=== PATIENT | female | born 1985 ===

== ENCOUNTER 2018-05-24 04:56 | Observation (INO) | payer SELFPAY ==
[2018-05-24] MEDS ORDERED: Sodium Chloride 0.9% 1,000 ML IV ONE (05:22)
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
[2018-05-24] MEDS ORDERED: Sodium Chloride 0.9% 1,000 ML ONE (05:54)
[2018-05-24 05:55] LABS: BASO % 0.4 % (0.0-2.0); EOS # 0.1 K/uL (0.0-0.7); EOS % 1.9 % (0.0-4.0); HCG,QUALITATIVE URINE NEGATIVE (NEGATIVE); LYMPH # 1.7 K/uL (1.0-4.3); LYMPH % 23.1 % (20.0-40.0); MEAN CELL VOLUME 90.2 fL (81.0-99.0); MEAN CORPUSCULAR HEMOGLOBIN 31.7 pg (27.0-31.0); MEAN CORPUSCULAR HGB CONC 35.2 g/dL (33.0-37.0); MEAN PLATELET VOLUME 8.9 fL (7.2-11.7); MONO # 0.2 K/uL (0.0-0.8); MONO % 3.2 % (0.0-10.0); NEUT # 5.3 K/uL (1.8-7.0); NEUT % 71.4 % (50.0-75.0); NRBC % 0.1 % (0.0-2.0); RBC 4.09 Mil/uL (3.80-5.20); RED CELL DISTRIBUTION WIDTH 12.4 % (11.5-14.5); WHITE BLOOD COUNT 7.4 K/uL (4.8-10.8)
[2018-05-24 05:57] LABS: SQUAMOUS EPITHIAL < 1 /hpf (0-5); URINE BILIRUBIN NEGATIVE (NEGATIVE); URINE BLOOD NEGATIVE (NEGATIVE); URINE CLARITY Clear (Clear); URINE COLOR Colorless (YELLOW); URINE GLUCOSE (UA) NORMAL (Normal); URINE LEUKOCYTE ESTERASE NEG Leu/uL (Negative); URINE PROTEIN NEGATIVE (NEGATIVE); URINE UROBILINOGEN NORMAL mg/dL (0.2-1.0)
[2018-05-24 06:03] LABS: PROTHROMBIN TIME 10.6 SECONDS (9.7-12.2)
[2018-05-24 06:08] LABS: ALBUMIN 4.7 g/dL (3.5-5.0); ALT/SGPT 22 U/L (9-52); AST/SGOT 21 U/L (14-36); BLOOD UREA NITROGEN 11 mg/dL (7-17); CALCIUM 9.6 mg/dl (8.6-10.4); GFR NON-AFRICAN AMERICAN > 60
[2018-05-24 06:11] LABS: BARBITURATES, UR NEGATIVE (NEGATIVE); OPIATES, UR NEGATIVE (NEGATIVE); PHENCYCLIDINE, UR NEGATIVE (NEGATIVE)
[2018-05-24 06:14] LABS: ACETAMINOPHEN < 10.0 ug/mL (10.0-30.0)
[2018-05-24 06:21] LABS: VENOUS BLOOD GAS BASE EXCESS -3.8 mmol/L (0.0-2.0); VENOUS BLOOD GAS PCO2 39 mmHg (40-60); VENOUS BLOOD GAS PO2 51 mm/Hg (30-55); VENOUS BLOOD PH 7.35 (7.32-7.43)
[2018-05-24 06:48] LABS: BENZODIAZEPINES, UR NEGATIVE (NEGATIVE)
[2018-05-24 07:20] VITALS: O2SAT 100
--- NOTE | 2018-05-24 08:19 | CP.PCM.HP ---
History of Present Illness - History of Present Illness History of Present Illness: Patient is a 32 year old female w/ no PMHx who presents to the ED s/p suicide attempt. Patient and report they got in an argument, and in an effort for attention, patient consumed melatonin and aspirin, of unknown quantity. P atient presented to ED within an hour of ingestion. Pt denies headache, tinnitus, SOB, tachypnea, chest pain, nausea, vomiting, prior suicide attempt. PMD: None PMHx: denies PSHx: denies Meds: denies Allergies: denies SocHx: social alcohol Present on Admission - Present on Admission Any Indicators Present on Admission: No Review of Systems - EENT Eyes: absent: Blurred Vision - Cardiovascular Cardiovascular: absent: Chest Pain, Palpitations, Rapid Heart Rate - Respiratory Respiratory: absent: Dyspnea - Gastrointestinal Gastrointestinal: absent: Abdominal Pain, Nausea, Vomiting - Neurological Neurological: absent: Abnormal Hearing, Dizziness - Psychiatric Psychiatric: absent: Suicidal Ideation Past Patient History - Infectious Disease Hx of Infectious Diseases: None - Past Social History Smoking Status: Never Smoked - CARDIAC Hx Cardiac Disorders: No Hx Hypertension: No - PULMONARY Hx Tuberculosis: No - NEUROLOGICAL HX Cerebrovascular Accident: No Hx Seizures: No - HEMATOLOGICAL/ONCOLOGICAL Hx Cancer: No Hx Human Immunodeficiency Virus (HIV): No - GENITOURINARY/GYNECOLOGICAL Hx Sexually Transmitted Disorders: No - PSYCHIATRIC Hx Substance Use: No - SURGICAL HISTORY Hx Surgeries: No - ANESTHESIA Hx Anesthesia: No Meds Allergies/Adverse Reactions: Allergies Allergy/AdvReac Type Severity Reaction Status Date / Time No Known Allergies Allergy Verified 09/03/16 18:00 Physical Exam - Constitutional Appears: No Acute Distress - Head Exam Head Exam: ATRAUMATIC, NORMAL INSPECTION, NORMOCEPHALIC - Eye Exam Eye Exam: Conjunctival injection, EOMI, Normal appearance - ENT Exam ENT Exam: Mucous Membranes Moist, Normal Exam - Neck Exam Neck exam: Positive for: Normal Inspection - Respiratory Exam Respiratory Exam: Clear to Auscultation Bilateral, NORMAL BREATHING PATTERN - Cardiovascular Exam Cardiovascular Exam: Tachycardia, REGULAR RHYTHM - GI/Abdominal Exam GI & Abdominal Exam: Normal Bowel Sounds, Soft. absent: Tenderness - Extremities Exam Extremities exam: Positive for: normal inspection. Negative for: calf tenderness, pedal edema - Neurological Exam Neurological exam: Alert, CN II-XII Intact, Oriented x3 - Psychiatric Exam Psychiatric exam: Normal Affect, Normal Mood - Skin Skin Exam: Dry, Intact, Normal Color, Warm Results - Vital Signs Recent Vital Signs: Last Vital Signs Temp 98.2 F 05/24/18 07:18 Pulse 102 H 05/24/18 07:18 Resp 20 05/24/18 07:18 BP 118/70 05/24/18 07:18 Pulse Ox 100 05/24/18 07:18 - Labs Result Diagrams: 05/24/18 05:52 05/24/18 13:45 Labs: Laboratory Results - last 24 hr 05/24/18 05/24/18 05/24/18 05:43 05:52 05:52 WBC 7.4 RBC 4.09 Hgb 13.0 Hct 36.8 MCV 90.2 MCH 31.7 H MCHC 35.2 RDW 12.4 Plt Count 268 MPV 8.9 Neut % (Auto) 71.4 Lymph % (Auto) 23.1 Bland % (Auto) 3.2 Eos % (Auto) 1.9 Baso % (Auto) 0.4 Neut # (Auto) 5.3 Lymph # (Auto) 1.7 Bland # (Auto) 0.2 Eos # (Auto) 0.1 Baso # (Auto) 0.0 PT 10.6 INR 1.0 APTT 34 pO2 VBG pH VBG pCO2 VBG HCO3 VBG Total CO2 VBG O2 Sat (Calc) VBG Base Excess VBG Potassium Glucose Lactate Sodium Potassium Chloride Carbon Dioxide Anion Gap BUN Creatinine Est GFR ( Amer) Est GFR (Non-Af Amer) POC Glucose (mg/dL) 91 Random Glucose Calcium Total Bilirubin AST ALT Alkaline Phosphatase Total Protein Albumin Globulin Albumin/Globulin Ratio Venous Blood Potassium Urine Color Urine Clarity Urine pH Ur Specific [place] Urine Protein Urine Glucose (UA) Urine Ketones Urine Blood Urine Nitrate Urine Bilirubin Urine Urobilinogen Ur Leukocyte Esterase Urine RBC (Auto) Ur Squamous Epith Cells Urine HCG, Qual Salicylates Urine Opiates Screen Urine Methadone Screen Acetaminophen Ur Barbiturates Screen Ur Phencyclidine Scrn Ur Amphetamines Screen U Benzodiazepines Scrn U Oth Cocaine Metabols U Cannabinoids Screen Alcohol, Quantitative 05/24/18 05/24/18 05/24/18 05:52 05:52 05:52 WBC RBC Hgb Hct MCV MCH MCHC RDW Plt Count MPV Neut % (Auto) Lymph % (Auto) Bland % (Auto) Eos % (Auto) Baso % (Auto) Neut # (Auto) Lymph # (Auto) Bland # (Auto) Eos # (Auto) Baso # (Auto) PT INR APTT pO2 VBG pH VBG pCO2 VBG HCO3 VBG Total CO2 VBG O2 Sat (Calc) VBG Base Excess VBG Potassium Glucose Lactate Sodium 151 H Potassium 4.3 Chloride 110 H Carbon Dioxide 18 L Anion Gap 26 H BUN 11 Creatinine 0.6 L Est GFR ( Amer) > 60 Est GFR (Non-Af Amer) > 60 POC Glucose (mg/dL) Random Glucose 96 Calcium 9.6 Total Bilirubin 0.2 AST 21 ALT 22 Alkaline Phosphatase 68 Total Protein 9.2 H Albumin 4.7 Globulin 4.5 H Albumin/Globulin Ratio 1.0 Venous Blood Potassium Urine Color Colorless Urine Clarity Clear Urine pH 5.0 Ur Specific [place] 1.002 L Urine Protein Negative Urine Glucose (UA) Normal Urine Ketones Negative Urine Blood Negative Urine Nitrate Negative Urine Bilirubin Negative Urine Urobilinogen Normal Ur Leukocyte Esterase Neg Urine RBC (Auto) < 1 Ur Squamous Epith Cells < 1 Urine HCG, Qual Negative Salicylates Urine Opiates Screen Negative Urine Methadone Screen Negative Acetaminophen Ur Barbiturates Screen Negative Ur Phencyclidine Scrn Negative Ur Amphetamines Screen Negative U Benzodiazepines Scrn Negative U Oth Cocaine Metabols Negative U Cannabinoids Screen Negative Alcohol, Quantitative 237 H 05/24/18 05/24/18 05:52 06:05 WBC RBC Hgb Hct MCV MCH MCHC RDW Plt Count MPV Neut % (Auto) Lymph % (Auto) Bland % (Auto) Eos % (Auto) Baso % (Auto) Neut # (Auto) Lymph # (Auto) Bland # (Auto) Eos # (Auto) Baso # (Auto) PT INR APTT pO2 51 VBG pH 7.35 VBG pCO2 39 L VBG HCO3 21.6 VBG Total CO2 22.7 VBG O2 Sat (Calc) 87.0 H VBG Base Excess -3.8 L VBG Potassium 3.8 Glucose 96 Lactate 2.0 Sodium 147.0 Potassium Chloride 116.0 H Carbon Dioxide Anion Gap BUN Creatinine Est GFR ( Amer) Est GFR (Non-Af Amer) POC Glucose (mg/dL) Random Glucose Calcium Total Bilirubin AST ALT Alkaline Phosphatase Total Protein Albumin Globulin Albumin/Globulin Ratio Venous Blood Potassium 3.8 Urine Color Urine Clarity Urine pH Ur Specific [place] Urine Protein Urine Glucose (UA) Urine Ketones Urine Blood Urine Nitrate Urine Bilirubin Urine Urobilinogen Ur Leukocyte Esterase Urine RBC (Auto) Ur Squamous Epith Cells Urine HCG, Qual Salicylates 23.0 Urine Opiates Screen Urine Methadone Screen Acetaminophen < 10.0 L Ur Barbiturates Screen Ur Phencyclidine Scrn Ur Amphetamines Screen U Benzodiazepines Scrn U Oth Cocaine Metabols U Cannabinoids Screen Alcohol, Quantitative Assessment & Plan - Assessment and Plan (Free Text) Assessment: 32 year old F admitted s/p intentional salicylate overdose -Poison Control center recs -ABG q2 -salicylate level q2 -activated charcoal -NS @125/hr -vitals and neuro checks -maintain pH 7.35-7.45 -sodium bicarb, potassium if needed.
[2018-05-24] MEDS: Sodium Chloride 0.9% 1,000 ML IV SCH ×2 (08:35→17:29)
[2018-05-24] MEDS ORDERED: Charcoal 50 gm/240 ml Susp PO ONE (09:03)
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
[2018-05-24] MEDS ORDERED: Pantoprazole 40 mg EC Tab PO SCH (10:00)
[2018-05-24 10:35] LABS: ABG ALLEN TEST POS; ARTERIAL BLOOD GAS HCO3 22.9 mmol/L (21-28); ARTERIAL BLOOD GAS O2 SAT 98.8 % (95-98); ARTERIAL BLOOD GAS PCO2 25 mm/Hg (35-45); ARTERIAL BLOOD GAS PH 7.49 (7.35-7.45); ARTERIAL BLOOD GAS PO2 119 mm/Hg (80-100); ARTERIAL BLOOD GAS TCO2 19.9 mmol/L (22-28)
[2018-05-24 11:23] LABS: BLOOD UREA NITROGEN 9 mg/dL (7-17); CALCIUM 9.3 mg/dl (8.6-10.4); GFR NON-AFRICAN AMERICAN > 60
[2018-05-24 14:36] LABS: ALBUMIN 4.2 g/dL (3.5-5.0)
[2018-05-24 14:55] LABS: ALT/SGPT 19 U/L (9-52); AST/SGOT 26 U/L (14-36); BLOOD UREA NITROGEN 7 mg/dL (7-17); CALCIUM 9.5 mg/dl (8.6-10.4); GFR NON-AFRICAN AMERICAN > 60
[2018-05-24 16:55] VITALS: BP 107/63; PULSE 88; RESP 20; TEMP 99.2
--- NOTE | 2018-05-24 16:55 | CP.PCM.DIS ---
Provider - Provider Date of Admission: 05/24/18 06:25 Attending physician: Aaron Lemus MD Time Spent in preparation of Discharge (in minutes): 29 Diagnosis - Discharge Diagnosis (1) Salicylate overdose Status: Acute Hospital Course - Lab Results Lab Results: Most Recent Lab Values WBC 7.4 K/uL (4.8-10.8) 05/24/18 05:52 RBC 4.09 Mil/uL (3.80-5.20) 05/24/18 05:52 Hgb 13.0 g/dL (11.0-16.0) 05/24/18 05:52 Hct 36.8 % (34.0-47.0) 05/24/18 05:52 MCV 90.2 fL (81.0-99.0) 05/24/18 05:52 MCH 31.7 pg (27.0-31.0) H 05/24/18 05:52 MCHC 35.2 g/dL (33.0-37.0) 05/24/18 05:52 RDW 12.4 % (11.5-14.5) 05/24/18 05:52 Plt Count 268 K/uL (130-400) 05/24/18 05:52 MPV 8.9 fL (7.2-11.7) 05/24/18 05:52 Neut % (Auto) 71.4 % (50.0-75.0) 05/24/18 05:52 Lymph % (Auto) 23.1 % (20.0-40.0) 05/24/18 05:52 [place] % (Auto) 3.2 % (0.0-10.0) 05/24/18 05:52 Eos % (Auto) 1.9 % (0.0-4.0) 05/24/18 05:52 Baso % (Auto) 0.4 % (0.0-2.0) 05/24/18 05:52 Neut # (Auto) 5.3 K/uL (1.8-7.0) 05/24/18 05:52 Lymph # (Auto) 1.7 K/uL (1.0-4.3) 05/24/18 05:52 [place] # (Auto) 0.2 K/uL (0.0-0.8) 05/24/18 05:52 Eos # (Auto) 0.1 K/uL (0.0-0.7) 05/24/18 05:52 Baso # (Auto) 0.0 K/uL (0.0-0.2) 05/24/18 05:52 PT 10.6 SECONDS (9.7-12.2) 05/24/18 05:52 INR 1.0 05/24/18 05:52 APTT 34 SECONDS (21-34) 05/24/18 05:52 Puncture Site Lra 05/24/18 10:32 pCO2 25 mm/Hg (35-45) L 05/24/18 10:32 pO2 119 mm/Hg (80-100) H 05/24/18 10:32 HCO3 22.9 mmol/L (21-28) 05/24/18 10:32 ABG pH 7.49 (7.35-7.45) H 05/24/18 10:32 ABG Total CO2 19.9 mmol/L (22-28) L 05/24/18 10:32 ABG O2 Saturation 98.8 % (95-98) H 05/24/18 10:32 ABG Base Excess -2.6 mmol/L (-2.0-3.0) L 05/24/18 10:32 Brandt Test Pos 05/24/18 10:32 ABG Potassium 3.5 mmol/L (3.6-5.2) L 05/24/18 10:32 VBG pH 7.35 (7.32-7.43) 05/24/18 06:05 VBG pCO2 39 mmHg (40-60) L 05/24/18 06:05 VBG HCO3 21.6 mmol/L 05/24/18 06:05 VBG Total CO2 22.7 mmol/L (22-28) 05/24/18 06:05 VBG O2 Sat (Calc) 87.0 % (40-65) H 05/24/18 06:05 VBG Base Excess -3.8 mmol/L (0.0-2.0) L 05/24/18 06:05 VBG Potassium 3.8 mmol/L (3.6-5.2) 05/24/18 06:05 A-a O2 Difference -1.0 mm/Hg 05/24/18 10:32 Respiratory Index 0 05/24/18 10:32 Sodium 146.0 mmol/l (132-148) 05/24/18 10:32 Chloride 119.0 mmol/L (98-107) H 05/24/18 10:32 Glucose 91 mg/dl (65-105) 05/24/18 10:32 Lactate 1.3 mmol/L (0.7-2.1) 05/24/18 10:32 FiO2 21.0 % 05/24/18 10:32 Sodium 148 mmol/L (132-148) 05/24/18 13:45 Potassium 3.7 mmol/L (3.6-5.2) 05/24/18 13:45 Chloride 113 mmol/L (98-107) H 05/24/18 13:45 Carbon Dioxide 17 mmol/L (22-30) L 05/24/18 13:45 Anion Gap 22 (10-20) H 05/24/18 13:45 BUN 7 mg/dL (7-17) 05/24/18 13:45 Creatinine 0.6 mg/dL (0.7-1.2) L 05/24/18 13:45 Est GFR ( Amer) > 60 05/24/18 13:45 Est GFR (Non-Af Amer) > 60 05/24/18 13:45 POC Glucose (mg/dL) 92 mg/dL (65-110) 05/24/18 09:16 Random Glucose 120 mg/dL (65-105) H 05/24/18 13:45 Calcium 9.5 mg/dl (8.6-10.4) 05/24/18 13:45 Total Bilirubin 0.2 mg/dL (0.2-1.3) 05/24/18 13:45 AST 26 U/L (14-36) 05/24/18 13:45 ALT 19 U/L (9-52) 05/24/18 13:45 Alkaline Phosphatase 65 U/L (38-126) 05/24/18 13:45 Total Protein 8.4 g/dL (6.3-8.3) H 05/24/18 13:45 Albumin 4.2 g/dL (3.5-5.0) 05/24/18 13:45 Globulin 4.2 gm/dL (2.2-3.9) H 05/24/18 13:45 Albumin/Globulin Ratio 1.0 (1.0-2.1) 05/24/18 13:45 Arterial Blood Potassium 3.5 mmol/L (3.6-5.2) L 05/24/18 10:32 Venous Blood Potassium 3.8 mmol/L (3.6-5.2) 05/24/18 06:05 Urine Color Colorless (YELLOW) 05/24/18 05:52 Urine Clarity Clear (Clear) 05/24/18 05:52 Urine pH 5.0 (5.0-8.0) 05/24/18 05:52 Ur Specific [place] 1.002 (1.003-1.030) L 05/24/18 05:52 Urine Protein Negative mg/dL (NEGATIVE) 05/24/18 05:52 Urine Glucose (UA) Normal mg/dL (Normal) 05/24/18 05:52 Urine Ketones Negative mg/dL (NEGATIVE) 05/24/18 05:52 Urine Blood Negative (NEGATIVE) 05/24/18 05:52 Urine Nitrate Negative (NEGATIVE) 05/24/18 05:52 Urine Bilirubin Negative (NEGATIVE) 05/24/18 05:52 Urine Urobilinogen Normal mg/dL (0.2-1.0) 05/24/18 05:52 Ur Leukocyte Esterase Neg Tiffany/uL (Negative) 05/24/18 05:52 Urine RBC (Auto) < 1 /hpf (0-3) 05/24/18 05:52 Ur Squamous Epith Cells < 1 /hpf (0-5) 05/24/18 05:52 Urine HCG, Qual Negative (NEGATIVE) 05/24/18 05:52 Salicylates 25.0 mg/dL 1 05/24/18 14:31 Urine Opiates Screen Negative (NEGATIVE) 05/24/18 05:52 Urine Methadone Screen Negative (NEGATIVE) 05/24/18 05:52 Acetaminophen < 10.0 ug/mL (10.0-30.0) L 05/24/18 05:52 Ur Barbiturates Screen Negative (NEGATIVE) 05/24/18 05:52 Ur Phencyclidine Scrn Negative (NEGATIVE) 05/24/18 05:52 Ur Amphetamines Screen Negative (NEGATIVE) 05/24/18 05:52 U Benzodiazepines Scrn Negative (NEGATIVE) 05/24/18 05:52 U Oth Cocaine Metabols Negative (NEGATIVE) 05/24/18 05:52 U Cannabinoids Screen Negative (NEGATIVE) 05/24/18 05:52 Alcohol, Quantitative 237 mg/dl (0-10) H 05/24/18 05:52 - Hospital Course Hospital Course: Patient was evaluated and treated at [facility] on 05/24/18. Patient present s/p intentional salicylate ingestion. EKG, VBG, CBC, CMP were performed. Patient's salicylate level was trended q2. ABG trended q2. Poison Control contacted, with recommendations. Clinically patient remained stable. Salicylate levels reached their peak at 33.9, and ten began to decline into normal range. As per poison control, patient required no further intervention. Psych was consulted to evaluate pt, and was determined pt did not need 1:1. Patient advised to return to ED with any worsening of symptoms. HPI on admission Patient is a 32 year old female w/ no PMHx who presents to the ED s/p suicide attempt. Patient and report they got in an argument, and in an effort for attention, patient consumed melatonin and aspirin, of unknown quantity. Patient presented to ED within an hour of ingestion. Pt denies headache, tinnitus, SOB, tachypnea, chest pain, nausea, vomiting, prior suicide attempt. Discharge Exam - Head Exam Head Exam: ATRAUMATIC, NORMAL INSPECTION, NORMOCEPHALIC - Eye Exam Eye Exam: Conjunctival injection, EOMI, Normal appearance - ENT Exam ENT Exam: Mucous Membranes Moist - Neck Exam Neck exam: Normal Inspection - Respiratory Exam Respiratory Exam: Clear to PA & Lateral, NORMAL BREATHING PATTERN, UNREMARKABLE - Cardiovascular Exam Cardiovascular Exam: Tachycardia, REGULAR RHYTHM, +S1, +S2 - GI/Abdominal Exam GI & Abdominal Exam: Normal Bowel Sounds, Soft, Unremarkable - Extremities Exam Extremities exam: normal capillary refill - Neurological Exam Neurological exam: Alert, CN II-XII Intact, Oriented x3 - Psychiatric Exam Psychiatric exam: Normal Affect, Normal Mood - Skin Skin Exam: Dry, Intact, Normal Color, Warm Discharge Plan - Follow Up Plan Condition: GOOD Disposition: HOME/ ROUTINE Patient education suggested?: Yes Instructions: Depression Additional Instructions: Patient is stable for discharge home. Patient was treated for acute aspirin toxicity, and is now stable for discharge. Patient is encouraged to follow up with a psychiatrist upon discharge. Should patient experience any worsening of symptoms, patient is advised to return to the ED immediately.
[2018-05-24] MEDS ORDERED: Influenza Vaccine 60 MCG/0.5 ML SYR (3 yr & up) IM ONE (17:08)
--- NOTE | 2018-05-25 22:53 | CARD ---
APPROVED REPORT Date of service: 05/24/2018 EKG Measurement Heart [id number] <Conclusion> Normal sinus rhythm Normal ECG
== END 2018-05-24 19:00 | disposition home or self-care (01) ==
LOC: C.ER 04:56 → C.9E 06:25 → C.5S 09:11
PROVIDERS: ADMIT Family Medicine; ATTEND Family Medicine
DX: T39.012A Poisoning by aspirin, intentional self-harm, initial encounter (principal); F39 Unspecified mood [affective] disorder; T42.6X2A Poisoning by other antiepileptic and sedative-hypnotic drugs, intentional self-harm, initial encounter; Y92.838 Other recreation area as the place of occurrence of the external cause
CPT/HCPCS: 36415; 80048; 80053; 81001; 82803; 82948; 84703; 85025; 85610; 85730; 90674; 93005; 96360; 99285; G0008; G0378; G0480; J2405; J7030

== ENCOUNTER 2018-10-01 13:04 | Emergency (ER) | payer OTHER ==
[2018-10-01 13:09] VITALS: BP 133/80; PULSE 74; RESP 18; TEMP 98.9; O2SAT 98; BMI 28.1
--- NOTE | 2018-10-01 13:25 | C.PDOC ---
History Of Present Illness 33 y/o female with no significant PMH presents to the ED c/o rash x 3 days. Rash is red, itchy, and located on her upper back and over the top of her right breast. No new lotions, detergent, shampoos, or changes in diet. Pt has never had rash like this before. Pt has tried calamine lotion without relief. No recent travel. Denies fevers, chills, nausea, vomiting, headache, dizziness, abdominal pain, chest pain, SOB, throat swelling, lip/mouth/facial swelling, or any other associated symptoms. 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) Onset/Duration Of Symptoms: Days Past Medical History Reviewed: Historical Data, Nursing Documentation, Vital Signs Vital Signs: Last Vital Signs Temp 98.9 F 10/01/18 13:07 Pulse 74 10/01/18 13:07 Resp 18 10/01/18 13:07 BP 133/80 10/01/18 13:07 Pulse Ox 98 10/01/18 13:07 - Medical History PMH: No Chronic Diseases Denies: Diabetes, Hepatitis, HIV, HTN, Seizures, Sexually Transmitted Disease Family History: States: Unknown Family Hx - Social History Hx Alcohol Use: No Hx Substance Use: No - Immunization History Hx Tetanus Toxoid Vaccination: No Hx Influenza Vaccination: No Hx Pneumococcal Vaccination: No Review Of Systems Constitutional: Negative for: Fever, Chills Eyes: Negative for: Vision Change, Conjunctivae Inflammation, Eyelid Inflammation, Redness ENT: Negative for: Ear Pain, Ear Discharge, Nose Pain, Nose Discharge, Nose Congestion, Mouth Pain, Mouth Swelling, Throat Pain, Throat Swelling Cardiovascular: Negative for: Chest Pain, Palpitations, Light Headedness Respiratory: Negative for: Cough, Shortness of Breath Gastrointestinal: Negative for: Nausea, Vomiting, Abdominal Pain Musculoskeletal: Negative for: Neck Pain, Back Pain Skin: Positive for: Rash Neurological: Negative for: Weakness, Numbness, Headache, Dizziness Physical Exam - Physical Exam Appears: Well, No Acute Distress Skin: Warm, Dry, Rash (raised maculopapular rash with dry skin over upper and mid back, bilateral posterior upper arms, and top of right breast.) Head: Atraumatic, Normacephalic Eye(s): bilateral: Normal Inspection, PERRL, EOMI Nose: Normal Oral Mucosa: Moist Throat: Normal, No Erythema, No Exudate Neck: Normal, Normal ROM, Supple Cardiovascular: Rhythm Regular Respiratory: Normal Breath Sounds Gastrointestinal/Abdominal: Soft, No Tenderness Back: No CVA Tenderness, No Vertebral Tenderness, No Decreased ROM, No Muscle Spasm, No Paraspinal Tenderness, Other (rash, see skin exam) Extremity: Normal ROM, Capillary Refill (<2s) Extremity: Bilateral: Atraumatic, Normal Color And Temperature, Normal ROM Pulses: Left Radial: Normal, Right Radial: Normal Neurological/Psych: Oriented x3, Normal Speech, Normal Motor, Normal Sensation Gait: Steady ED Course And Treatment O2 Sat by Pulse Oximetry: 98 Medical Decision Making Medical Decision Making: Initial Plan: * Prednisone * Pepcid * Benadryl ED attending Dr. Shaw evaluated patient at bedside and agrees with plan of care. Rash appears dry and eczematous. Pt reports improvement in symptoms with medications. Rash appears less red, patient reports decreased itch. Advised to apply moisturizing lotion and take luke warm showers along with prescribed medications. Advised dermatologic followup. Will discharge home with prescriptions for medications given in ED. Diagnostic testing results and plan of care discussed with patient. Strict instructions given regarding prescription use, importance of followup, and signs/symptoms to return to ER including fever, chills, worsening rash, or any other new/worsening symptoms. Pt verbalized understanding of discussion. Patient is A&Ox3, ambulating with steady gait, with vital signs stable for discharge. Disposition - Disposition Referrals: [facility] at [facility] [Outside] Maria Del Rosario Cleaning MD [Non-Staff] - Disposition: HOME/ ROUTINE Disposition Time: 14:00 Condition: IMPROVED Additional Instructions: Prednisona [address] Pepcid cada [address] Benadryl cada 6 horas segn sea necesario para la picazn, esto puede causarle sueo Aumentar los fluidos Locin Mouisturzinf en las reas afectadas diariamente despus de baarse Slo duchas tibias Seguimiento con dermatlogo dentro de [address]. Seguimiento con primaria o clnica dentro de [address]. Regrese a la alfonzo de emergencias con cualquier sntoma nuevo o que empeore Prescriptions: DiphenhydrAMINE [Benadryl] 25 mg PO Q6H PRN #20 cap PRN Reason: Itching / Pruritus Famotidine [Pepcid] 20 mg PO Q12H #9 tab predniSONE [predniSONE Tab] 20 mg PO DAILY #8 tab Instructions: Eczema (Atopic Dermatitis), Skin Rash (DC) Forms: General Discharge Instructions, [facility] (Pashto), Work Excuse Print Language: YAKUT - Clinical Impression Clinical Impression: Allergic dermatitis
== END 2018-10-01 14:15 | disposition home or self-care (01) ==
LOC: C.ER 13:04
DX: L23.9 Allergic contact dermatitis, unspecified cause (principal)